=== PATIENT | male | born 1995 | race Two or more races ===

== ENCOUNTER 2020-04-13 14:59 | Emergency (ER) | payer BC, OTHER ==
[~2020-04-13] VITALS: Ht 167.6 cm; Wt 73.5 kg
--- NOTE | 2020-04-13 15:20 | NUR ---
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 DENIES CURRENT PAIN AT THIS TIME.
[2020-04-13] MEDS ORDERED: KETOROLAC 30 MG/1 ML IM ONE (15:30)
[2020-04-13] MEDS ORDERED: KETOROLAC 30 MG/1 ML ONE (15:36)
--- NOTE | 2020-04-13 15:43 | NUR ---
BREAK RN: PT UPRIGHT ON GURNEY, AWAKE & MEDICATED PER EMAR BY PRIMARY RN, RESPONDS APPROP TO STAFF, NAD AT REST, NO NEEDS AT THIS TIME, CALL LIGHT WITHIN REACH. PT TO RAD.
--- NOTE | 2020-04-13 15:55 | NUR ---
PT RETURNED FROM RAD.
[2020-04-13 16:47] VITALS: BP 98/60
== END 2020-04-13 16:51 | disposition home or self-care (01) ==
LOC: ED 15:35
DX: R07.89 Other chest pain (principal); Z87.891 Personal history of nicotine dependence
CPT/HCPCS: 71046; 93005; 96372; 99283; J1885